=== PATIENT | female | born 1975 | race Caucasian/White ===

== ENCOUNTER → 2019-03-06 | Day surgery (SDC) | payer OTHER ==
[~2019-03-06] MED LIST: CARAFATE1 GM/10 ML PO; FAMOTIDINE20 MG PO; LIDOCAINE HCL 2% LOCAL INJ 5 ML SDV VIAL INJ ONE; MAGNESIUM CITRATE PO; MIDAZOLAM HCL 2 MG/2 ML VIAL ONE; MOMETASONE FURO30 ML NS; MULTIVITAMINS1 EAC8; NUVIGIL250 MG; PANTOPRAZOLE SO40 MG PO; PAZEO OU; PROAIR HFA INH8.5 GM IH; PROBIOTIC & AC1 EACH; PROPOFOL IV EMULSION 10 MG/ML 20 ML VIAL ONE; SUCRALFATE1 GM PO; SUMATRIPTAN SUC25 MG PO; UBIQUINOL100 MG; VITAMIN B12 PO; XIIDRA OU; XYZAL5 MG; ZOFRAN8 MG; ZOLOFT PO
--- OUTSIDE RECORDS SUMMARY | 2019-03-06 09:51 | XMS REPORT ---
Author Organization Unknown Address [address] [place] [id number] Phone [phone] Care Team Providers Care Spray Cementer Name Role Phone MARGARET AMBRIZ MD 837 [phone] RADHA MARTIN MD 603 [phone] Allergies Code Code System Name Reaction Severity Status Onset Penicillins Active Medications Name Status Start Date Stop Date Adult Multivitamin Extra Vitamin D3 200 mcg chewable tablet Take 2 tablets every day by oral route. Completed 10/25/2017 albuterol sulfate 2.5 mg/3 mL (0.083 %) solution for nebulization Inhale 3 mL by nebulization route. Completed 02/16/2017 azithromycin 250 mg tablet Completed 09/02/2017 benzonatate 100 mg capsule Completed 02/16/2017 Flucelvax Quad 8055-0452 (PF) 60 mcg (15 mcg x 4)/0.5 mL IM syringe Completed 09/02/2017 fluconazole 150 mg tablet Completed 11/22/2017 levocetirizine 5 mg tablet Take 1 tablet every day by oral route. Active Not available levofloxacin 500 mg tablet Completed 02/16/2017 Lotemax 0.5 % eye gel drops Completed 10/26/2016 Mirena 20 mcg/24 hr (5 years) intrauterine device IMPLANT INSERTED 01/2016(DEVICE IS FOR 5 YRS) Active Not available modafinil 200 mg tablet QD Active Not available mometasone 50 mcg/actuation nasal spray Active Not available mupirocin 2 % topical ointment Active Not available nitrofurantoin monohydrate/macrocrystals 100 mg capsule Completed 11/22/2017 omeprazole 40 mg capsule,delayed release Completed 11/22/2017 phentermine 37.5 mg tablet Take 1 tablet every day by oral route. Active Not available Probiotic QD Active Not available Restasis 0.05 % eye drops in a dropperette Instill 1 drop twice a day by ophthalmic route for 90 days. Completed 11/22/2017 Restasis MultiDose 0.05 % eye drops Completed 11/22/2017 sertraline 100 mg tablet Active Not available sertraline 50 mg tablet Take 0.5 tablets every day by oral route. Completed 09/02/2017 valacyclovir 1 gram tablet Completed 11/16/2016 Valtrex 1,000 mg tablet Take 1 tablet every day by oral route as needed. Active Not available Ventolin HFA 90 mcg/actuation aerosol inhaler Completed 02/16/2017 Notes: PT IS ON A CPAP Problems Name Status Onset Date Source Herpes Simplex Active 10/26/2016 Recurrent Major Depressive Episodes, Moderate Active 10/26/2016 Allergic Rhinitis Active 10/26/2016 Snoring Active 10/26/2016 Body Mass Index 40+ - Severely Obese Active 10/26/2016 Mild Major Depression, Single Episode Active 11/16/2016 Sleep Apnea Active 02/16/2017 Fatigue Active 02/16/2017 Thrombocytosis Active 03/02/2017 Hypercholesterolemia Active 03/02/2017 Muscle Pain Active 03/02/2017 Patient Advised about Weight Management Active Procedures Date Name Performed by 10/06/2008 Delivery Information not available 08/15/2008 Caesarean Section Information not available 08/15/2000 Other Information not available 08/15/2000 Tooth Root Removal Information not available 02/02/2000 Delivery Information not available 08/15/1999 Caesarean Section Information not available 11/16/2016 XR, Chest, 2 View [facility] [place] [address] [place] [address] (Work Place) Lab Results Date Name Specimen Result Interpretation Description Value Range Status Address 09/27/2017 CMP, Serum or Plasma Alt 24 U/L 0-55 U/L Final [facility] Laboratory: [address] Ast 15 U/L 5-34 U/L Final [facility] Laboratory: [address] Bun 16.0 mg/dL 7.0-18.7 mg/dL Final [facility] Laboratory: [address] Alk Phos 82 unit/L 40-150 unit/L Final [facility] Laboratory: [address] Glucose 91 mg/dL 70-99 mg/dL Final [facility] Laboratory: [address] Albumin 4.0 g/dL 3.5-5.0 g/dL Final [facility] Laboratory: [address] Creatinine 0.71 mg/dL 0.57-1.11 mg/dL Final [facility] Laboratory: [address] eGFR Non- >60 mL/min/1.73m2 >60 mL/min/1.73m2 Final [facility] Laboratory: [address] Total Bilirubin 0.4 mg/dL 0.2-1.2 mg/dL Final [facility] Laboratory: [address] eGFR - >60 mL/min/1.73m2 >60 mL/min/1.73m2 Final [facility] Laboratory: [address] Sodium 139 mEq/L 136-145 mEq/L Final [facility] Laboratory: [address] Potassium 4.6 mEq/L 3.5-5.1 mEq/L Final [facility] Laboratory: [address] Chloride 102 mmol/L 98-107 mmol/L Final [facility] Laboratory: [address] Total Protein 8.0 g/dL 6.4-8.3 g/dL Final [facility] Laboratory: [address] Calcium 9.7 mg/dL 8.4-10.2 mg/dL Final [facility] Laboratory: [address] Co2 26.0 mmol/L 22.0-29.0 mmol/L Final [facility] Laboratory: [address] Anion Gap 11 calc Final [facility] Laboratory: [address] 09/27/2017 Lipid Panel, Serum Hdl 43 mg/dL 40-60 mg/dL Final [facility] Laboratory: [address] Triglyceride 134 mg/dL 0-149 mg/dL Final [facility] Laboratory: [address] VLDL Calc. 27 mg/dL Final [facility] Laboratory: [address] cholesterol/HDL Ratio 5.6 mg/dL Final [facility] Laboratory: [address] High non-HDL Cholesterol Calc. 197 mg/dL 0-160 mg/dL Final [facility] Laboratory: [address] High Cholesterol 240 mg/dL 0-199 mg/dL Final [facility] Laboratory: [address] High LDL Calc. 170 mg/dL 0-130 mg/dL Final [facility] Laboratory: [address] 09/27/2017 TSH, Serum or Plasma Tsh 2.544 uIU/mL 0.350-4.940 uIU/mL Final [facility] Laboratory: [address] 09/27/2017 HbA1C (Hemoglobin a1C), Blood A1C W/eag 5.5 % 1.0-5.7 % Final [facility] Laboratory: [address] Average Blood Glucose 111 mg/dL Final [facility] Laboratory: [address] 09/27/2017 CBC W/ Auto Diff Wbc 10.8 x10e3/uL 3.4-10.8 x10e3/uL Final [facility] Laboratory: [address] Rbc 4.62 x10e6/uL 3.77-5.28 x10e6/uL Final [facility] Laboratory: [address] Hemoglobin 13.3 g/dL 11.1-15.9 g/dL Final [facility] Laboratory: [address] Hematocrit 39.9 % 34.0-46.6 % Final [facility] Laboratory: [address] Mcv 86 fL 79-97 fL Final [facility] Laboratory: [address] Mch 28.8 pg 26.6-33.0 pg Final [facility] Laboratory: [address] Mchc 33.3 g/dL 31.5-35.7 g/dL Final [facility] Laboratory: [address] Rdw 14.6 % 12.3-15.4 % Final [facility] Laboratory: [address] High Platelets 411 x10e3/uL 150-379 x10e3/uL Final [facility] Laboratory: [address] Neutrophils 73 % not estab. % Final [facility] Laboratory: [address] Lymphs 18 % not estab. % Final [facility]: [facility] [facility] 6 % not estab. % Final [facility] Laboratory: [address] Eos 2 % not estab. % Final [facility] Laboratory: [address] [place] [address] [place] Basos 0 % not estab. % Final [facility] Laboratory: [address] Immature Cells comment Cancelled [facility] Laboratory: [address] High Neutrophils (Absolute) 7.8 x10e3/uL 1.4-7.0 x10e3/uL Final [facility] Laboratory: [address] Lymphs (Absolute) 2.0 x10e3/uL 0.7-3.1 x10e3/uL Final [facility] Laboratory: [address] Monocytes(absolute) 0.7 x10e3/uL 0.1-0.9 x10e3/uL Final [facility] Laboratory: [address] Eos (Absolute) 0.3 x10e3/uL 0.0-0.4 x10e3/uL Final [facility] Laboratory: [address] Baso (Absolute) 0.0 x10e3/uL 0.0-0.2 x10e3/uL Final [facility] Laboratory: [address] Immature Granulocytes 1 % not estab. % Final [facility] Laboratory: [address] Immature Grans (Abs) 0.1 x10e3/uL 0.0-0.1 x10e3/uL Final [facility] Laboratory: [address] Hematology Comments: comment Cancelled [facility] Laboratory: [address] [place] [address] 02/16/2017 CBC W/ Auto Diff Rdw 13.7 % 12.3-15.4 % Final [facility] Laboratory: [address] High Platelets 381 x10e3/uL 150-379 x10e3/uL Final [facility] Laboratory: [address] Neutrophils 68 % Final [facility] Laboratory: [address] [place] Lymphs 21 % Final [facility] Laboratory: [address], [place] Monocytes 8 % Final [facility] Laboratory: [address], [place] Eos 3 % Final [facility] Laboratory: [address], [place] Basos 0 % Final [facility] Laboratory: [address] [place] Immature Cells comment Cancelled [facility] Laboratory: [address] [place] Neutrophils (Absolute) 5.9 x10e3/uL 1.4-7.0 x10e3/uL Final [facility] Laboratory: [address] [place] Lymphs (Absolute) 1.9 x10e3/uL 0.7-3.1 x10e3/uL Final [facility] Laboratory: [address] [place] Monocytes(absolute) 0.7 x10e3/uL 0.1-0.9 x10e3/uL Final [facility] Laboratory: [address] [place] Eos (Absolute) 0.3 x10e3/uL 0.0-0.4 x10e3/uL Final [facility] Laboratory: [address] [facility] [place] Baso (Absolute) 0.0 x10e3/uL 0.0-0.2 x10e3/uL Final [facility] Laboratory: [address] [place] Immature Granulocytes 0 % Final [facility] Laboratory: [address] [place] Immature Grans (Abs) 0.0 x10e3/uL 0.0-0.1 x10e3/uL Final [facility] Laboratory: [address], [place] Hematology Comments: comment Cancelled [facility] Laboratory: [address] [place] Wbc 8.9 x10e3/uL 3.4-10.8 x10e3/uL Final [facility] Laboratory: [address] [place] Rbc 4.34 x10e6/uL 3.77-5.28 x10e6/uL Final [facility] Laboratory: [address] [place] Hemoglobin 12.4 g/dL 11.1-15.9 g/dL Final [facility] Laboratory: [address] [place] Hematocrit 37.1 % 34.0-46.6 % Final [facility] Laboratory: [address] [place] Mcv 86 fL 79-97 fL Final [facility] Laboratory: [address] [place] Mch 28.6 pg 26.6-33.0 pg Final [facility] Laboratory: [address] [place] Mchc 33.4 g/dL 31.5-35.7 g/dL Final [facility]055 [facility] 02/16/2017 CMP, Serum or Plasma Alt 21 U/L 0-55 U/L Final [facility] Laboratory: [address] Ast 15 U/L 5-34 U/L Final [facility] Laboratory: [address] [place] [address] Bun 17.9 mg/dL 7.0-18.7 mg/dL Final [facility] Laboratory: [address] Alk Phos 64 unit/L 40-150 unit/L Final [facility] Laboratory: [address] Glucose 93 mg/dL 70-99 mg/dL Final [facility] Laboratory: [address] Albumin 3.9 g/dL 3.5-5.0 g/dL Final [facility] Laboratory: [address] Creatinine 0.85 mg/dL 0.57-1.11 mg/dL Final [facility] Laboratory: [address] eGFR Non- >60 mL/min/1.73m2 >60 mL/min/1.73m2 Final [facility] Laboratory: [address] Total Bilirubin 0.4 mg/dL 0.2-1.2 mg/dL Final [facility] Laboratory: [address] eGFR - >60 mL/min/1.73m2 >60 mL/min/1.73m2 Final [facility] Laboratory: [address] Sodium 141 mEq/L 136-145 mEq/L Final [facility] Laboratory: [address] Potassium 4.3 mEq/L 3.5-5.1 mEq/L Final [facility] Laboratory: [address] [place] [address], [place] Chloride 107 mmol/L 98-107 mmol/L Final [facility] Laboratory: [address] [place] [address], [place] Total Protein 7.5 g/dL 6.4-8.3 g/dL Final [facility] Laboratory: [address] [place] [address], [place] Calcium 9.1 mg/dL 8.4-10.2 mg/dL Final [facility] Laboratory: [address] [place] [address], [place] Co2 25.0 mmol/L 22.0-29.0 mmol/L Final [facility] Laboratory: [address] [place] [address], [place] Anion Gap 9 calc Final [facility] Laboratory: [address] [place] [address], [place] 02/16/2017 Lipid Panel, Serum Low Hdl 32 mg/dL 40-60 mg/dL Final [facility] Laboratory: [address] [place] [address], [place] Triglyceride 102 mg/dL 0-149 mg/dL Final [facility] Laboratory: [address] VLDL Calc. 20 mg/dL Final [facility] Laboratory: [address] cholesterol/HDL Ratio 7 mg/dL Final [facility] Laboratory: [address] High non-HDL Cholesterol Calc. 179 mg/dL 0-160 mg/dL Final [facility] Laboratory: [address] High Cholesterol 211 mg/dL 0-199 mg/dL Final [facility] Laboratory: [address] High LDL Calc. 159 mg/dL 0-130 mg/dL Final [facility] Laboratory: [address] [place] [address], [place] 02/16/2017 TSH, Serum or Plasma Tsh 3.003 uIU/mL 0.350-4.940 uIU/mL Final [facility] Laboratory: [address] [place] [address], [place] 02/16/2017 HbA1C (Hemoglobin a1C), Blood A1C W/eag 5.5 % 1.0-5.7 % Final [facility] Laboratory: [address] [place] [address], [place] Average Blood Glucose 111 mg/dL Final [facility] Laboratory: 9055 [place] [address], [place] Urinalysis, Dipstick No observation recorded. [facility]: [address] [place] [address] Past Encounters 11/22/2017 Body Mass Index 40+ - Severely Obese; Sleep Apnea; Patient Advised about Weight Management Lynne Fournier MD: [address] [place] [phone], Ph. 11/08/2017 Acute Urinary Tract Infection; Body Mass Index 40+ - Severely Obese Lynne Fournier MD: [address] [place] [phone], Ph. 10/25/2017 Body Mass Index 40+ - Severely Obese; Hyperlipidemia Lynne Fournier MD: [address] [place] [phone], Ph. 09/27/2017 Hypercholesterolemia; Recurrent Major Depressive Episodes, Moderate; Body Mass Index 40+ - Severely Obese; Thrombocytosis; Sleep Apnea Lynne Fournier MD: [address] [place] [phone], Ph. 09/02/2017 Anterior Epistaxis; Obstructive Sleep Apnea Syndrome; Mixed Anxiety and Depressive Disorder; Recurrent Major Depressive Episodes, Moderate; Seasonal Allergy; Migraine with Aura; Narcolepsy; Body Mass Index 40+ - Severely Obese; Thrombocytosis; Hypercholesterolemia Lynne Fournier MD: [address] [place] [phone], Ph. 03/02/2017 Hypercholesterolemia; Thrombocytosis; Muscle Pain; Sleep Apnea; Body Mass Index 40+ - Severely Obese; Adult Health Examination; Vaccination for Diphtheria, Pertussis, and Tetanus Mel Em MD: [address] [place] [phone], Ph. 02/16/2017 Recurrent Major Depressive Episodes, Moderate; Fatigue; Sleep Apnea; Body Mass Index 40+ - Severely Obese; Adult Health Examination Mel Em MD: [address] [place] [phone], Ph. 11/16/2016 Acute Bronchitis; Mild Major Depression, Single Episode; Cough; Snoring; Body Mass Index 40+ - Severely Obese; Adult Health Examination Mel Em MD: [address] [place] [phone], Ph. 10/26/2016 Cough; Acute Bronchitis; Allergic Rhinitis; Recurrent Major Depressive Episodes, Moderate; Herpes Simplex; Snoring; Body Mass Index 40+ - Severely Obese; Adult Health Examination Mel Em MD: [address] [place] [phone], Ph. Social History Smoking Status Former Smoker (1 PPD) Notes: QUIT: 2006 Vaccine List Vaccine Type influenza, injectable, quadrivalent 06/19/2017 influenza, unspecified formulation 04/16/2015 Notes: decline's all vaccine's -11/22/2017-patito Plan of Care Reminders Provider Appointments None recorded. Lab None recorded. Referral None recorded. Procedures None recorded. Surgeries None recorded. Imaging None recorded. Vitals 11/22/2017 10:15AM Est Patient Height Weight BMI Blood Pressure 5 ft 3 in 263 lbs 46.6 kg/m2 108/80 mm[Hg] 11/08/2017 01:45PM Est Patient Height Weight BMI Blood Pressure 5 ft 3 in 272 lbs 48.2 kg/m2 102/70 mm[Hg] 10/25/2017 04:00PM Work In Same Day Height Weight BMI Blood Pressure 5 ft 3 in 273 lbs 48.4 kg/m2 126/84 mm[Hg] 09/27/2017 08:45AM Est Patient Height Weight BMI Blood Pressure 5 ft 3 in 276 lbs 48.9 kg/m2 104/78 mm[Hg] 09/02/2017 02:30PM Est Patient Height Weight Blood Pressure 5 ft 3 in 126/90 mm[Hg] 03/02/2017 08:45AM Est Patient Height Weight BMI Blood Pressure 5 ft 3 in 276 lbs 48.9 kg/m2 124/72 mm[Hg] 02/16/2017 08:00AM Est Patient Height Weight BMI Blood Pressure 5 ft 3 in 277 lbs 49.1 kg/m2 138/74 mm[Hg] 11/16/2016 08:45AM Est Patient Height Weight BMI Blood Pressure 5 ft 3 in 277 lbs 49.1 kg/m2 115/86 mm[Hg] 10/26/2016 02:00PM Est Patient Height Weight BMI Blood Pressure 5 ft 3 in 277 lbs 49.1 kg/m2 111/78 mm[Hg]
--- OUTSIDE RECORDS SUMMARY | 2019-03-06 09:51 | XMS REPORT | Encounter Summary ---
Author Organization Unknown Address [address] [place] [address] Phone [phone] Care Team Providers Care Weld Technician Name Role Phone Dr. Lynne Fournier 3 [phone] Lynne Fournier MD 3 [phone] Jerson Chen MD 114 [phone] Gisela Yun MD 126 [phone] Reason for Visit Annual physical - female Instructions 1. Adult health examination CBC w/ auto diff CMP, serum or plasma lipid panel, serum TSH, serum or plasma urinalysis, dipstick HbA1c (hemoglobin A1c), blood 2. Body mass index 40+ - severely obese body mass index: care instructions learning about healthy weight 3. Depression screening positive learning about depression learning about mood disorders 4. Immunization Adacel (Tdap Adolesn/Adult)(PF)2 Lf-(2.5-5-3-5)-5 Lf/0.5 mL IM syringe 5. Moderate recurrent major depression deciding about stopping your antidepressant depression after childbirth: care instructions depression and chronic disease: care instructions depression treatment: care instructions learning about depression during preventing a relapse of depression: care instructions recovering from depression: care instructions seasonal affective disorder: care instructions suicidal thoughts in a family member: care instructions sertraline 100 mg tablet Discussion Note If you do not hear from us in 1 week after the labs are done ,pl call us for results f/u in 1 month to review depression as med dose of Zoloft has been increased frm 150 mg to 200mg Plan of Care Reminders Provider Appointments VICE PRESIDENT PAYMENT/EST CPX on or around 10/04/2018 Madison Spence MD Lab CBC W/ Auto Diff 09/06/2018 [facility] CMP, Serum or Plasma 09/06/2018 [facility] Lipid Panel, Serum 09/06/2018 [facility] TSH, Serum or Plasma 09/06/2018 [facility] Urinalysis, Dipstick 09/06/2018 [facility] HbA1C (Hemoglobin a1C), Blood 09/06/2018 [facility] Referral None recorded. Procedures None recorded. Surgeries None recorded. Imaging None recorded. Medications Name Start Date armodafinil 250 mg tablet Take 1 tablet every day by oral route for 30 days. cyanocobalamin-methylcobalamin ONE A DAY Elidel 1 % topical cream Apply 1 application every day by topical route as needed for 30 days. levocetirizine 5 mg tablet Take 1 tablet every day by oral route. Mirena 20 mcg/24 hr (5 years) intrauterine device IMPLANT INSERTED 01/2016(DEVICE IS FOR 5 YRS) mometasone 50 mcg/actuation nasal spray [place] 1 spray every day by nasal route for 90 days. multivitamin capsule 4 CAPSULES DAILY mupirocin 2 % topical ointment APPLY A SMALL AMOUNT TO THE AFFECTED AREA 3 TIMES PER DAY. olopatadine 0.1 % eye drops Instill 1 drop every day by ophthalmic route as needed. ProAir HFA 90 mcg/actuation aerosol inhaler Inhale 2 puffs every 4 hours by inhalation route for 14 days. Probiotic QD Restasis MultiDose 0.05 % eye drops BID sertraline 100 mg tablet take 2 tabs po qd Soolantra 1 % topical cream Apply 1 application every day by topical route as needed for 30 days. Valtrex 1,000 mg tablet Take 1 tablet every day by oral route as needed. Medications Administered None recorded. Vitals Height Weight BMI Blood Pressure 5 ft 3 in 250 lbs 44.3 kg/m2 118/72 mm[Hg] Lab Results Date Name Specimen Result Interpretation Description Value Range Status Address 08/23/2018 Culture, Urine ABNORMAL Culture, Urine, Routine see note Final [facility]: [address] [facility] [address], [place] 08/23/2018 Urinalysis, Dipstick Color Color yellow [facility]: [address] [place] Color Appearance clear [facility]: [address] [place] Color Glucose negative [facility]: [address] [place] Color Bilirubin negative [facility]: [address] [place] Color Ketones negative [facility]: [address] [place] Color Specific [place] 1.020 [facility]: [address] [place] Color Blood negative [facility]: [address] [place] Color PH 7.5 [facility] [address] [place] Color Protein negative [facility] [address] [place] Color Urobilinogen 0.2 [facility]: [address] [place] Color Nitrites negative [facility]: [address] [place] Color Leukocytes negative [facility]: [address] [place] Allergies Code Code System Name Reaction Severity Status Onset Grass Pollen Wheezing Mild to Moderate Active Penicillins Active Tree and Shrub Pollen Wheezing Mild to Moderate Active [place] Pollen Wheezing Mild to Moderate Active Problems Name Status Onset Date Source Herpes [...] available 08/15/1999 Caesarean Section Information not available Vaccine List Vaccine Type influenza, injectable, quadrivalent 06/19/2017 influenza, unspecified formulation 04/16/2015 06/07/2018 Tdap 09/06/20180.5 mL Social History Smoking Status Former Smoker (1 PPD) Past Encounters 09/06/2018 Adult Health Examination; Body Mass Index 40+ - Severely Obese; Depression Screening Positive; Immunization; Moderate Recurrent Major Depression Madison Spence MD: [address] [place] [address], Ph. 08/23/2018 Pyuria; Body Mass Index 40+ - Severely Obese; Thrombocytosis; Recurrent Major Depressive Episodes, Moderate Thriveni Tre Spence MD: [address] [place] [address], Ph. History of Present Illness Note:Here for a physical , worried abut her daughters safety & afraid she will go to long term , so stres eating , No suicidal thoughts or ideation , no thoughts to hurt self or any one else. doing better than before since taking 150 mg zoloft , no more crying . not motivated to get up & do home projects. ( but doing much better with increase in Zoloft dose. Review of Systems None recorded. Physical Exam General Adult Exam (Female) Reported By: Patient Constitutional: General Appearance: well-developed, morbidly obese. Level of Distress: mild distress. Ambulation: ambulating normally Psychiatric: Insight: good judgement. Mental Status: active and alert, normal mood, normal affect; seems mildly restless,. Orientation: to time, to place, to person Head: Head: normocephalic, atraumatic Eyes: Lids and Conjunctivae: non-injected, no discharge, no pallor. Pupils: PERRLA. Corneas: grossly intact. EOM: EOMI. Lens: clear. Sclerae: non-icteric ENMT: Ears: no lesions on external ear, EACs clear, TMs clear. Hearing: no hearing loss. Nose: no lesions on external nose, nares patent, no septal deviation, nasal passages clear, no sinus tenderness, no nasal discharge. Lips, Teeth, and Gums: no mouth or lip ulcers, no bleeding gums, normal dentition. Oropharynx: moist mucous membranes, no erythema, no exudates, tonsils not enlarged Neck: Neck: supple, trachea midline, no masses, FROM. Lymph Nodes: no cervical LAD, no supraclavicular LAD, no axillary LAD. Thyroid: no enlargement, non- tender, no nodules Lungs: Respiratory effort: no dyspnea. Auscultation: breath sounds normal, good air movement, CTA except as noted, no wheezing, no rales/crackles, no rhonchi Cardiovascular: Heart Auscultation: RRR, normal S1, normal S2, no murmurs, no rubs, no gallops Abdomen: Bowel Sounds: normal. Inspection and Palpation: soft, non-distended, no tenderness, no guarding, no rebound tenderness, no masses, no CVA tenderness. Liver: non-tender, no hepatomegaly Musculoskeletal:: Motor Strength and Tone: normal motor strength, normal tone. Joints, Bones, and Muscles: normal movement of all extremities, no bony abnormalities, no contractures, no malalignment, no tenderness. Extremities: no cyanosis, no edema, no varicosities Neurologic: Gait and Station: normal gait, normal station. Cranial Nerves: grossly intact. Sensation: grossly intact Skin: Inspection and palpation: no rash, no lesions, no abnormal nevi, good turgor, no jaundice. Nails: normal Back: Thoracolumbar Appearance: normal curvature Notes: Alert, oriented x 3 , Cranial nerves 2-12 intact , Strength 5/5 in all 4 extremities , Gait - Normal , Speech - normal, Visual cardozo - Intact , Sensations - intact in all 4 extremities, DTR's - 2 + in all 4 extremities , No tremors, cerebellar signs intact , straight line walking test & finger nose test - normal, Rhomberg- Negative<div>Mildly fidety as she is worried about he rdaughter</div><div>Alert , oriented x 3 , neatly dressed , good eye contact, answers q's appropriately , no monotonous tone .</div>
--- OUTSIDE RECORDS SUMMARY | 2019-03-06 09:52 | XMS REPORT | Encounter Summary ---
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 Lynne Fournier 3 [phone] Lynne Fournier MD 3 [phone] Jerson Chen MD 114 [phone] Gisela Yun MD 126 [phone] Reason for Visit asthma; headaches Instructions 1. Body mass index 40+ - severely obese body mass index: care instructions learning about healthy weight 2. Migraine with aura sumatriptan 50 mg tablet 3. Asthma Discussion Note: None recorded. 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 Lab None recorded. Referral None recorded. Procedures None recorded. Surgeries None recorded. Imaging None recorded. Medications Name Start Date armodafinil 250 mg tablet Take 1 tablet every day by oral route for 30 days. Elidel 1 % topical cream Apply 1 application every day by topical route as needed for 30 days. levocetirizine 5 mg tablet Take 1 tablet every day by oral route. Mirena 20 mcg/24 hours (5 yrs) 52 mg intrauterine device IMPLANT INSERTED 01/2016(DEVICE IS FOR 5 YRS) mometasone 50 mcg/actuation nasal spray [place] 1 spray every day by nasal route for 90 days. multivitamin capsule 4 CAPSULES DAILY mupirocin 2 % topical ointment APPLY A SMALL AMOUNT TO THE AFFECTED AREA 3 TIMES PER DAY. [place] 0.7 % eye drops Instill 1 drop every day by ophthalmic route for 25 days. ProAir HFA 90 mcg/actuation aerosol inhaler Inhale 2 puffs every 4 hours by inhalation route for 14 days. Probiotic QD Restasis MultiDose 0.05 % eye drops BID sertraline 100 mg tablet Take 1.5 tablets every day by oral route. sumatriptan 50 mg tablet take one tablet as needed may repeat one time after 2 hours Valtrex 1,000 mg tablet Take 1 tablet every day by oral route as needed. Medications Administered None recorded. Vitals Height Weight BMI Blood Pressure 5 ft 3 in 255 lbs 45.2 kg/m2 112/72 mm[Hg] Lab Results None recorded. Allergies Code Code System Name Reaction Severity Status Onset Grass Pollen Wheezing Mild to Moderate Active Penicillins Active Tree and Shrub Pollen Wheezing Mild to Moderate Active [place] Pollen Wheezing Mild to Moderate Active Problems [...] Status Former Smoker (1 PPD) Past Encounters 10/25/2018 Body Mass Index 40+ - Severely Obese; Migraine with Aura; Asthma Sarath Hopper MD: [address] [place] [address], Ph. 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 Physical Exam Upper Respiratory Infection Exam Comprehensive Reported By: Patient Constitutional: General Appearance in no acute distress Skin: Inspection and palpation: no rash, no lesions, no ulcer, good turgor, no jaundice Head: Sinuses no tenderness Eyes: Pupils EOM intact, PERRLA, conjunctiva non-injected Ears: Right External auditory canal normal appearance, no obstruction, no erythema, no discharge. Left External auditory canal normal appearance, no obstruction, no erythema, no discharge. Right Tympanic membrane mobile with pneumatic otoscopy, pearly miranda, landmarks clear. Left Tympanic membrane: mobile with pneumatic otoscopy, pearly miranda, landmarks clear Nose: Nasal Skin: no lesion, no lacerations. Nasal Mucosa normal, pink and moist Oral Cavity/Mouth: Lips, teeth, gums normal lips, normal gums. Oral Mucosa: normal, moist, no lesions. Palate: normal hard palate, normal soft palate. Tongue: normal tongue, no lesion, no edema. Tonsils: normal tonsils, no lesions. Posterior pharynx: normal Lymph Nodes: Cervical no palpable lymph node enlargement, no submandibular adenopathy, no posterior cervical adenopathy, no anterior cervical adenopathy, no supraclavicular adenopathy Neck: Neck symmetrical, trachea midline Lungs: Respiratory effort unlabored. Auscultation breath sounds normal, no wheezing, no rales / crackles, no rhonchi Cardiovascular System: Auscultation regular rate and rhythm, no murmur, no rubs, no gallops. Observation/Palpation of peripheral vascular system no varicosities, carotid pulse normal, no edema
--- OUTSIDE RECORDS SUMMARY | 2019-03-06 09:52 | XMS REPORT | Encounter Summary ---
Author Organization Unknown Address [address] [place] [address] Phone [phone] Care Team Providers Care School Commissioner Name Role Phone Dr. Lynne Fournier 3 [phone] Lynne Fournier MD 3 [phone] Jerson Cehn MD 114 [phone] Gisela Yun MD 126 [phone] Reason for Visit UTI; diarrhea Instructions 1. Dysuria urinalysis, dipstick culture, urine ciprofloxacin 500 mg tablet phenazopyridine 200 mg tablet 2. Gastroesophageal reflux disease without esophagitis gastroenterology referral pantoprazole 40 mg tablet,delayed release sucralfate 1 gram tablet famotidine 40 mg tablet 3. Nausea ondansetron 8 mg disintegrating tablet 4. Candidiasis of vagina fluconazole 150 mg tablet 5. Recurrent major depressive episodes, moderate 6. Body mass index 40+ - severely obese body mass index: care instructions learning about healthy weight Discussion Note: None recorded. Plan of Care Reminders Provider Appointments Est Patient 2019 4:00PM Lynne Fournier MD Lab Urinalysis, Dipstick 01/24/[address] [facility] Agar Culture, Urine 01/24/[address] [facility] Laboratory Referral Gastroenterology Referral 01/24/2019 William Cali MD Procedures None recorded. Surgeries None recorded. Imaging None recorded. Medications Name Start Date armodafinil 250 mg tablet Take 1 tablet every day by oral route for 30 days. ciprofloxacin 500 mg tablet Take 1 tablet every 12 hours by oral route after meals for 7 days. famotidine 40 mg tablet Take 1 tablet every day by oral route at bedtime. fluconazole 150 mg tablet One tablet by mouth per day levocetirizine 5 mg tablet Take 1 tablet every day by oral route. Mirena 20 mcg/24 hours (5 yrs) 52 mg intrauterine device IMPLANT INSERTED 01/2016(DEVICE IS FOR 5 YRS) mometasone 50 mcg/actuation nasal spray [place] 1 spray every day by nasal route for 90 days. multivitamin capsule 4 CAPSULES DAILY mupirocin 2 % topical ointment APPLY A SMALL AMOUNT TO THE AFFECTED AREA 3 TIMES PER DAY. ondansetron [address] 1 tablet every 8 hours by translingual route as needed for 7 days. pantoprazole 40 mg tablet,delayed release Take 1 tablet every day by oral route in the morning. [place] 0.7 % eye drops Instill 1 drop every day by ophthalmic route for 25 days. phenazopyridine 200 mg tablet Take 1 tablet 3 times a day by oral route for 3 days. ProAir HFA 90 mcg/actuation aerosol inhaler Inhale 2 puffs every 4 hours by inhalation route for 14 days. Probiotic QD sertraline 100 mg tablet Take 1.5 tablets every day by oral route. sucralfate 1 gram tablet Take 1 tablet 4 times a day by oral route for 14 days. sumatriptan 50 mg tablet TAKE ONE (1) TABLET(S) BY MOUTH NEEDED MAY REPEAT ONE TIME AFTER 2 HOURS. Valtrex 1,000 mg tablet Take 1 tablet every day by oral route as needed. Xiidra 5 % eye drops in a dropperette use 1 drop each eye twice a day Medications Administered None recorded. Vitals Height Weight BMI Blood Pressure 5 ft 3 in 263.6 lbs 46.7 kg/m2 116/76 mm[Hg] Lab Results Date Name Specimen Result Interpretation Description Value Range Status Address Urinalysis, Dipstick Color Glucose negative [facility] ([facility]) Agar: [address] [place] Color Bilirubin negative [facility] Agar: [address] [place] Color Ketones negative [facility]ar: [address] [place] Color Specific [place] 1.020 [facility] Agar: [address] [place] Color Blood trace [facility] Agar: [address] [place] Color PH 5.5 [facility] Agar: [address] [place] Color Protein negative [facility] Agar: [address] [place] Color Urobilinogen 0.[address] [facility]) Agar: [address] [facility], [place] Color Nitrites negative [facility] ([facility]) Agar: [address] [facility] [place] Color Leukocytes negative [facility] Agar: [address] [facility] Allergies Code Code System Name Reaction Severity Status Onset Grass Pollen Wheezing Mild to Moderate Active Penicillins Active Tree and Shrub Pollen Wheezing Mild to Moderate Active [place] Pollen Wheezing Mild to Moderate Active Problems [...] Status Former Smoker (1 PPD) Past Encounters 01/24/2019 Dysuria; Gastroesophageal Reflux Disease without Esophagitis; Nausea; Candidiasis of Vagina; Recurrent Major Depressive Episodes, Moderate; Body Mass Index 40+ - Severely Obese Lynne Fournier MD: [address] [place] [address], Ph. History of Present Illness Note:43yo female presents for evaluation of stomach upset and possible UTI/bacterial vaginitis/yeast since January 13. Pt developed diarrhea on Tuesday, January 09, 2019 with stomach pain, nausea, no vomiting. Intestinal spasms. Pt thinks she may have IBS. Diarrhea looked like food wasn't digested in toilet. Lasted 4 days. Had recurrent diarrhea this past Tuesday for past two days - not liquid, just loose today. Has been taking Azo for urinary symptoms since 01/13/19, but stopped yesterday. Has dysuria/burning with end of urination. Cloudy, malodorous urine. Also with itchy groin. Scant vaginal discharge. No fever.<div> Previously in Aug 2018, pt had normal UA, but culture grew Proteus mirabilis res istant to Bactrim & Macrobid. Has unremarkable UA in office today. Discussed with pt & will send for urine culture & cover with cipro for 7days. Continue pyridium (discussed orange colored urine).</div><div>Will cover with Diflucan for possible yeast.</div><div>Continue extra water to flush bladder.
<div>Hx of pyelonephritis in 4th grade.</div><div>Stomach issues/IBS for years with terrible burning in stomach. Improved with eating/bread. Has been using OTC Prilosec - look PPI last night.</div><div>Wonders about H pylori. Has not seen GI before.</div><div>
</div><div>Is under tremendous stress with 18yo daughter. & 9yo daughter live at home with pt. The almost 19yo daughter just completed a month stay in rehab for drug use in November 2018. Unfortunately, has not stayed sober. Does not use good judgement when she is high - stealing, pawning jewelry for money, trading sex for money. Puts family in danger. Pt seeing counselor regularly. Pt seeing counselor every 2-4wks at [facility] in [place]. Tearful & upset discussing daughter. Not sure how to help her. Rehab was very expensive $5500 for 30-days - facility said most people do better with 90-day stay, but pt cannot afford this for her daughter right now.</div><div>Discussed possibility of stress ulcer. Pt denies blood in stool. Agrees with GI eval.</div><div>Previously at Aug 2018 visit:< /div><div>Here for a physical , worried abut her daughters safety & afraid she will go to halfway , so stress eating , No suicidal thoughts or ideation , no thoughts to hurt self or any one else. doing better than before since taking 150 mg zoloft , no more crying . not motivated to get up & do home projects. ( but doing much better with increase in Zoloft dose.)</div></div> Review of Systems:ROS as noted in the HPI Review of Systems Comprehensive General Adult ROS Reported By: Patient Constitutional: Constitutional: no fever Eyes: Eyes: no vision change Cardiovascular: Cardiovascular: no chest pain Respiratory: Respiratory: no cough, no wheezing, no shortness of breath Gastrointestinal: Gastrointestinal: no vomiting, not vomiting blood, abdominal pain, nausea, change in appetite, frequent diarrhea, dyspepsia, GERD Genitourinary: Genitourinary: no incontinence, no hematuria, difficulty urinating, increased urinary frequency Neurologic: Neurologic: no loss of consciousness, no headaches Psychiatric: Psych: no depression, no alcohol abuse, no anxiety, no suicidal thoughts Physical Exam General Adult Exam (Female) Reported By: Patient Constitutional: General Appearance: well-developed, morbidly obese. Level of Distress: mild distress; tearful, appropriate. Ambulation: ambulating normally Psychiatric: Insight: good judgement. Mental Status: active and alert, normal mood, normal affect; seems mildly restless,. Orientation: to time, to place, to person Head: Head: normocephalic, atraumatic Eyes: Lids and Conjunctivae: non-injected. Pupils: PERRLA. Corneas: grossly intact. EOM: EOMI. Lens: clear. Sclerae: non-icteric ENMT: Ears: no lesions on external ear, EACs clear, TMs clear. Hearing: no hearing loss. Lips, Teeth, and Gums: normal dentition. Oropharynx: moist mucous membranes Lungs: Respiratory effort: no dyspnea. Auscultation: breath sounds normal, good air movement, CTA except as noted, no wheezing, no rales/crackles, no rhonchi Cardiovascular: Heart Auscultation: RRR, normal S1, normal S2, no murmurs, no rubs, no gallops Abdomen: Bowel Sounds: normal. Inspection and Palpation: soft, non-distended, no tenderness, no guarding, no rebound tenderness, no masses, no CVA tenderness. Liver: non-tender, no hepatomegaly Musculoskeletal:: Extremities: no edema Neurologic: Gait and Station: normal gait Back: Thoracolumbar Appearance: normal curvature Notes: Alert, oriented x 3 , Cranial nerves 2-12 intact , Strength 5/5 in all 4 extremities , Gait - Normal , Speech - normal, Visual carodzo - Intact , Sensations - intact in [...]
[2019-03-06 15:00] VITALS: BP 110/71
== END | disposition home or self-care (01) ==
LOC: OR 09:48
PROVIDERS: ATTEND Internal Medicine Gastroenterology
DX: K29.70 Gastritis, unspecified, without bleeding (principal); K31.7 Polyp of stomach and duodenum; K44.9 Diaphragmatic hernia without obstruction or gangrene; L53.8 Other specified erythematous conditions; K21.9 Gastro-esophageal reflux disease without esophagitis; K64.8 Other hemorrhoids; J45.909 Unspecified asthma, uncomplicated; G47.33 Obstructive sleep apnea (adult) (pediatric); F41.9 Anxiety disorder, unspecified; F32.9 Major depressive disorder, single episode, unspecified; Z88.0 Allergy status to penicillin; Z68.42 Body mass index [BMI] 45.0-49.9, adult; Z87.891 Personal history of nicotine dependence
CPT/HCPCS: 43239; 45380; 81025; J2001; J2250; J2704